=== PATIENT | male | born 1975 | race Caucasian/White ===

== ENCOUNTER → 2022-03-05 | Outpatient (CLI) | payer OTHER, SELFPAY ==
[2022-03-05 12:14] LABS: Absolute Lymphocyte Count 1.52 X10^3/uL (0.83-4.51); Absolute Neutrophil Count 3.3 X10^3/uL (2.0-7.7); Basophil# 0.07 X10^3/uL; Basophil% 1.3 % (0-1); Eosinophil# 0.17 X10^3/uL; Eosinophils% 3.1 % (0-5); Hematocrit 43.1 % (40-54); Hemoglobin 14.1 g/dL (13.0-16.5); Lymphocyte # 1.52 X10^3/ul (0.83-4.51); Lymphocyte % 27.3 % (19-41); Mean Corp Hgb Conc 32.7 g/dL (32-36); Mean Corpuscular Hgb 31.8 pg (27.0-32.0); Mean Corpuscular Volume 97.3 fL (80-94); Mean Platelet Vol. 9.6 fl (6.2-12.0); Monocyte# 0.54 X10^3/uL; Monocyte% 9.7 % (0-10); NRBC Flagged by Analyzer 0 % (0-5); Neutrophil # 3.26 X10^3/uL (2.7-7.7); Neutrophil % 58.4 % (47-70); Platelet Count 264 K/mm3 (150-450); RBC Distribution Width CV 12.4 % (11.6-14.6); RBC Distribution Width SD 44.7 fl (35.1-43.9); Red Blood Count 4.43 M/mm3 (4.6-6.2); White Blood Count 5.6 K/mm3 (4.4-11.0)
[2022-03-05 12:34] LABS: Vitamin D,25 Hydroxy 51.5 ng/mL
[2022-03-05 12:48] LABS: AST(SGOT) 23 U/L (15-37); Alanine Aminotransfer ALT/SGPT 29 U/L (16-61); Albumin, Serum 3.7 g/dL (3.2-5.0); Alkaline Phosphatase 62 U/L (45-117); Anion Gap 6 (5-15); BUN 19 mg/dL (7-18); BUN/Creat Ratio 19.5 RATIO (10-20); Calcium,Total 8.6 mg/dL (8.5-10.1); Chloride 105 mmol/L (98-107); Cholesterol 174 mg/dL (200); Creatinine, Serum 0.98 mg/dL (0.70-1.30); EST Glomerular Filtration Rate 87 mL/min (>60); Est Glom Filt Rate - Afr Amer 105 mL/min (>60); Globulin 3.7 g/dL (2.2-4.2); Glucose 87 mg/dL (74-106); High Density Lipoprotein 49 mg/dL; Potassium 4.1 mmol/L (3.5-5.1); Protein, Total 7.4 g/dL (6.4-8.2); Sodium Level 137 mmol/L (136-145); Thyroid Stim Hormone (TSH) 1.76 uIU/mL (0.358-3.74); Triglycerides 56 mg/dL; Very Low Density Lipoprotein 11 mg/dL (5-40)
== END | disposition home or self-care (01) ==
PROVIDERS: PCP Family Medicine; Referring Provider Family Medicine; Visit Provider Family Medicine
DX: Z00.00 Encounter for general adult medical examination without abnormal findings (principal); E55.9 Vitamin D deficiency, unspecified
CPT/HCPCS: 36415; 80053; 80061; 82306; 84443; 85025

== ENCOUNTER → 2024-03-12 | Outpatient (CLI) | payer OTHER, SELFPAY ==
[2024-03-12 17:48] LABS: Absolute Lymphocyte Count 1.82 X10^3/uL (0.83-4.51); Absolute Neutrophil Count 4.1 X10^3/uL (2.0-7.7); Basophil# 0.07 X10^3/uL; Eosinophil# 0.18 X10^3/uL; Eosinophils% 2.7 % (0-5); Lymphocyte # 1.82 X10^3/ul (0.83-4.51); Lymphocyte % 26.9 % (19-41); Mean Corp Hgb Conc 31.7 g/dL (32-36); Mean Corpuscular Hgb 30.8 pg (27.0-32.0); Mean Corpuscular Volume 97.2 fL (80-94); Mean Platelet Vol. 9.7 fl (6.2-12.0); Monocyte# 0.58 X10^3/uL; Monocyte% 8.6 % (0-10); NRBC Flagged by Analyzer 0 % (0-5); Neutrophil # 4.09 X10^3/uL (2.7-7.7); Neutrophil % 60.5 % (47-70); Platelet Count 296 K/mm3 (150-450); RBC Distribution Width CV 12.9 % (11.6-14.6); RBC Distribution Width SD 46.3 fl (35.1-43.9); Red Blood Count 4.22 M/mm3 (4.6-6.2); White Blood Count 6.8 K/mm3 (4.4-11.0)
[2024-03-12 18:41] LABS: ALB/GLOB Ratio 1.1 RATIO (0.9-2.4); AST(SGOT) 22 U/L (15-37); Alanine Aminotransfer ALT/SGPT 23 U/L (16-61); Albumin, Serum 3.6 g/dL (3.2-5.0); Alkaline Phosphatase 59 U/L (45-117); Anion Gap 5 (5-15); BUN 20 mg/dL (7-18); BUN/Creat Ratio 14.8 RATIO (10-20); Calcium,Total 8.7 mg/dL (8.5-10.1); Chloride 104 mmol/L (98-107); Cholesterol 155 mg/dL (200); Creatinine, Serum 1.35 mg/dL (0.70-1.30); EST Glomerular Filtration Rate 59 mL/min (>60); Est Glom Filt Rate - Afr Amer 72 mL/min (>60); Globulin 3.3 g/dL (2.2-4.2); Glucose 101 mg/dL (74-106); High Density Lipoprotein 55 mg/dL; Potassium 3.7 mmol/L (3.5-5.1); Protein, Total 6.9 g/dL (6.4-8.2); Sodium Level 136 mmol/L (136-145); Thyroid Stim Hormone (TSH) 1.43 uIU/mL (0.358-3.74); Triglycerides 67 mg/dL; Very Low Density Lipoprotein 13 mg/dL (5-40)
== END | disposition home or self-care (01) ==
LOC: MFPLAB 14:19
PROVIDERS: PCP Family Medicine; Visit Provider Family Medicine
DX: Z00.00 Encounter for general adult medical examination without abnormal findings (principal); E55.9 Vitamin D deficiency, unspecified
CPT/HCPCS: 36415; 80053; 80061; 82306; 84443; 85025

== ENCOUNTER 2024-10-07 07:25 | Day surgery (SDC) | payer OTHER, SELFPAY ==
[2024-10-07] VITALS (8 sets, daily range): BP systolic 93–149; BP diastolic 67–87; PULSE 55–72; RESP 16–18; TEMP 36.1–37.6; O2SAT 96–100; BMI 19.8
--- NOTE | 2024-10-07 07:46 | PCM.PRE.AN2 ---
ASA Classification* ASA Classification ASA Classification: 2 Assessment & Plan Anesthesia* Anesthesia Assessment Anesthesia Assessment: Discussed sedation and/or anesthesia options, risks, benefits, and alternatives with patient/parents/legal guardian/POA. Questions invited. The patient/parents/legal guardian/POA seems to understand and agrees to proceed with anesthesia plan. Reviewed the physical assessment, medical history, allergy history and patient home medications list prior to surgery/procedure/anesthetic and documented any changes. Performed airway and anesthesia risk assessments. Anesthesia Type Anesthesia Type: MAC Anesthesia Focused Assessment* Temperature: 97 F Pulse Rate: 72 Blood Pressure: 149/87 Respiratory Rate: 16 Pulse Ox: 99 Airway Assessment Mouth opens: >3 cm Mallampati Score: II Focused Labs Anesthesia Preop lab: CBC WBC 6.8 K/mm3 (4.4-11.0) 03/12/24 14:20 RBC 4.22 M/mm3 (4.6-6.2) L 03/12/24 14:20 Hgb 13.0 g/dL (13.0-16.5) 03/12/24 14:20 Hct 41.0 % (40-54) 03/12/24 14:20 Plt Count 296 K/mm3 (150-450) 03/12/24 14:20 CHEMISTRY Potassium 3.7 mmol/L (3.5-5.1) 03/12/24 14:20 Sodium 136 mmol/L (136-145) 03/12/24 14:20 BUN 20 mg/dL (7-18) H 03/12/24 14:20 Creatinine 1.35 mg/dL (0.70-1.30) H 03/12/24 14:20 Glucose 101 mg/dL (74-106) 03/12/24 14:20 TSH 1.43 uIU/mL (0.358-3.74) 03/12/24 14:20 COAG Pre-Assessment Diagnosis/Proposed Procedure Planned Operative Procedure(s): COLONOSCOPY Anesthesia History 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 When Was Last Pacemaker Check QUESTION #4 FULL TEXT: You/Your Family Experience fever (hyperthermia) with Anesthesia Last Oral Intake Last Oral intake: Last Oral Intake NPO since 03:30 10/07/24 07:36 Meds taken in AM with sips of No 10/07/24 07:36 water? 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 Female No 10/02/24 14:15 HX of Motion Sickness No 10/02/24 14:15 HX of N/V After Surgery No 10/02/24 14:15 Non-Smoker Yes 10/02/24 14:15 Duration of Surgery greater No 10/02/24 14:15 than 60 minutes Number of Risk Factors 1 10/02/24 14:15 PONV Score Low Risk 10/02/24 14:15 Height & Weight Height & Weight: Anesthesia: Height & Weight Height 5 ft 9 in 10/07/24 07:36 Weight: 61 kg 10/07/24 07:36 Body Mass Index (BMI) 19.8 10/07/24 07:36 Respiratory Assessment Respiratory Assessment - industrial waste treatment technician: Respiratory Tract Infection Hx - industrial waste treatment technician Hx Respiratory Tract Infection No 10/02/24 14:15 STOP Sleep Apnea STOP Sleep Apnea - industrial waste treatment technician: STOP Sleep Apnea - industrial waste treatment technician Hx Hypertension No 10/02/24 14:15 Hx Sleep Apnea No 10/02/24 14:15 CPAP BIPAP Do you snore loudly (louder No 10/02/24 14:15 than talking or can be heard Do you often feel tired/ No 10/02/24 14:15 fatigued/ sleepy during daytime? Has anyone observed you stop No 10/02/24 14:15 breathing during sleep? STOP Results Negative 10/02/24 14:15 QUESTION #5 FULL TEXT : Do you snore loudly (louder than talking or can be heard through closed doors)? 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 Specify any problems Hx of Preganancy in last 3 N/A 10/02/24 14:15 Months Nurse Filling Out Transfusion [facility] 10/02/24 14:15 & Questions: Date: 10/02/24 10/02/24 14:15 Time: 14:19 10/02/24 14:15 Patient unable to answer at this time (ie. 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: /Reproductive Hx- industrial waste treatment technician Hx Now Gestational Age (in weeks): EDC: Hx Hx Para Hx Section SAB PFSH Medical History Non-smoker MVP (mitral valve prolapse) Home Medications ?Medication ?Instructions ?Recorded ?Last Taken ?Type cholecalciferol (vitamin D3) 50 50 mcg PO QDAY 08/18/24 10/05/24 History mcg (2,000 unit) capsule glucosamine HCl 500 mg tablet 500 mg PO QDAY 08/18/24 10/05/24 History magnesium oxide 200 mg PO QDAY 08/18/24 10/05/24 History multivitamin 1 tab PO QAM 08/18/24 10/05/24 History omega-3 fatty acids-fish oil 360 1 cap PO QDAY 08/18/24 10/03/24 History mg-1,200 mg capsule (Fish Oil) Allergy/AdvReac Type Severity Reaction Status Date / Time Penicillins Allergy Other Verified 10/07/24 07:34 Surgical History History of hernia surgery Social History current occupational status: employed current occupation: [employer] Smoking Status: Never smoker alcohol intake: current alcohol intake frequency: a few times a month substance use type: does not use Review of Systems (Anesthesia) ROS Narrative System reviewed and no additional complaints, except as documented.
--- NOTE | 2024-10-07 08:21 | HP.PCM_ITS ---
[facility] - General General Date of Admission: 10/07/24 Date of Service: 10/07/24 Chief Complaint: Screening colonoscopy HPI Narrative MATHEW ORTEGA, is a 49 M who presents today for screening colonoscopy. He does not have any abdominal pain, cramping, chest pain or shortness of breath. He has not had a colonoscopy in the past. Overall is in very good health. [facility] Medical History Non-smoker MVP (mitral valve prolapse) Home Medications ?Medication ?Instructions ?Recorded ?Last Taken ?Type cholecalciferol (vitamin D3) 50 50 mcg PO QDAY 08/18/24 10/05/24 History mcg (2,000 unit) capsule glucosamine HCl 500 mg tablet 500 mg PO QDAY 08/18/24 10/05/24 History magnesium oxide 200 mg PO QDAY 08/18/24 10/05/24 History multivitamin 1 tab PO QAM 08/18/24 10/05/24 History omega-3 fatty acids-fish oil 360 1 cap PO QDAY 08/18/24 10/03/24 History mg-1,200 mg capsule (Fish Oil) Allergy/AdvReac Type Severity Reaction Status Date / Time Penicillins Allergy Other Verified 10/07/24 07:34 Surgical History History of hernia surgery Social History current occupational status: employed current occupation: [employer] Smoking Status: Never smoker alcohol intake: current alcohol intake frequency: a few times a month substance use type: does not use ROS Review of Systems ROS Unobtainable: other Constitutional Constitutional: Denies fatigue, fever(s), poor appetite, weight gain or weight loss ENT HEENT: Denies mouth lesions Cardiovascular Cardiovascular: Denies abdominal bloating, abdominal edema or abdominal pain Respiratory/Chest Respiratory/Chest: Denies change in mental status, change in phlegm color, chest congestion or chest tightness Gastrointestinal Gastrointestinal: Denies belching, bloating, change in bowel habits, change in stool character, chewing difficulty, coffee ground emesis, constipation, cramping, diarrhea, dyspepsia, dysphagia, early satiety, excessive flatus, fecal incontinence, heartburn, hematemesis, hematochezia, hemorrhoids, loose stools, melena, nausea, odynophagia, rectal bleeding, tenesmus, vomiting or weight changes Genitourinary Genitourinary: Denies abdominal discomfort, burning urination or itching Musculoskeletal Musculoskeletal: Reports as per HPI; Denies muscle weakness or myalgias Integumentary Integumentary: Denies jaundice Neurologic Neurologic: Denies lack of coordination or weakness Psychiatric Psychiatric: Denies confusion, depression, memory loss, mood swings, paranoia or suicidal ideation Endocrine Endocrinology: Denies systems reviewed and no addt'l complaints, except as documented Hematologic/Lymphatic Hematologic/Lymphatic: Denies anemia, easy bleeding, easy bruising or lymphadenopathy Allergic/Immunologic Allergic/Immunologic: Denies systems reviewed and no addt'l complaints, except as documented Vital Signs Vital Signs Vital Signs: 10/07/24 07:36 10/07/24 07:36 10/07/24 07:46 Temperature 97 F L 97 F L Temperature Source Temporal Pulse Rate 72 72 Respiratory Rate 16 16 Respiratory Pattern Normal Blood Pressure 149/87 H 149/87 H Blood Pressure Mean 107 Blood Pressure Source Monitor Blood Pressure Position Sitting Blood Pressure Location Left Arm Pulse Ox 99 99 Weight Weight: 134 lb 7.712 oz Body Mass Index (BMI) 19.8 Physical Exam Const alert General Appearance: cooperative Orientation / Consciousness: oriented to person HEENT hearing grossly normal bilaterally Head and Scalp: normal to inspection Face and Sinus: face symmetric Nose: external nose normal Mouth: oral and palatal mucosa normal Eyes conjunctivae normal General Eye: normal appearance of both eyes Neck full ROM General: normal visual inspection Lymph Lymphatic: no lymphadenopathy noted Chest inspection of chest normal and palpation of chest normal Chest: symmetrical chest wall rise Resp normal respiratory effort Effort and Inspection: able to speak in complete sentences Cardio regular rate GI non-distended Percussion: normal to percussion Rectal Exam: deferred Neuro Speech: speech normal Gait (Neuro): normal gait Assessment & Plan Assessment/Plan (1) Encounter for screening for malignant neoplasm of colon: PLAN: 49-year-old gentleman arrives for scan colonoscopy. He was explained alternatives, risk, benefits include not withstanding bleeding, infection, s epsis, perforation, need emergent urgent . He will have an ASA of 3.
--- NOTE | 2024-10-07 09:20 | OP.COLON_ITS ---
Patient Name: Tito Velez Procedure Date: 10/07/2024 8:54 AM Date of : 1975 Age: 49 Procedure: Colonoscopy Indications: Screening for colorectal malignant neoplasm Providers: Carson Gregory DO Medicines: Monitored Anesthesia Care Patient Profile: This is a 49 year old male. Refer to note in patient chart for documentation of history and physical. Last Colonoscopy: none. The patient's first colonoscopy is today. Complications: No immediate complications. Procedure: Pre-Anesthesia Assessment: - Prior to the procedure, a History and Physical was performed, and patient medications and allergies were reviewed. The patient is competent. The risks and benefits of the procedure and the sedation options and risks were discussed with the patient. All questions were answered and informed consent was obtained. Patient identification and proposed procedure were verified by the physician in the pre-procedure area. Mental Status Examination: alert and oriented. Airway Examination: normal oropharyngeal airway and neck mobility. Respiratory Examination: clear to auscultation. CV Examination: normal. Prophylactic Antibiotics: The patient does not require prophylactic antibiotics. Prior Anticoagulants: The patient has taken no anticoagulant or antiplatelet agents except for NSAID medication. ASA Grade Assessment: II - A patient with mild systemic disease. After reviewing the risks and benefits, the patient was deemed in satisfactory condition to undergo the procedure. The anesthesia plan was to use monitored anesthesia care (MAC). Immediately prior to administration of medications, the patient was re-assessed for adequacy to receive sedatives. The heart rate, respiratory rate, oxygen saturations, blood pressure, adequacy of pulmonary ventilation, and response to care were monitored throughout the procedure. The physical status of the patient was re-assessed after the procedure. After I obtained informed consent, the scope was passed under direct vision. Throughout the procedure, the patient's blood pressure, pulse, and oxygen saturations were monitored continuously. The Colonoscope was introduced through the anus and advanced to the cecum, identified by appendiceal orifice and ileocecal valve. The colonoscopy was performed without difficulty. The patient tolerated the procedure well. The quality of the bowel preparation was adequate. The ileocecal valve, appendiceal orifice, and rectum were photographed. Scope In: 9:02:41 AM Scope Withdrawal Time 0 hours 9 minutes 28 seconds Scope Out: 9:15:20 AM Total Procedure Duration Time 0 hours 12 minutes 39 seconds Findings: The perianal and digital rectal examinations were normal. A few small-mouthed diverticula were found in the recto-sigmoid colon, sigmoid colon and transverse colon. The entire examined colon appeared normal on direct and retroflexion views. The exam was otherwise without abnormality on direct and retroflexion views. Impression: - Diverticulosis in the recto-sigmoid colon, in the sigmoid colon and in the transverse colon. - The entire examined colon is normal on direct and retroflexion views. - The examination was otherwise normal on direct and retroflexion views. - No specimens collected. Recommendation: - Discharge patient to home. - Resume previous diet. - Continue present medications. - Repeat colonoscopy in 10 years for screening purposes. Procedure Code(s): --- Professional --- G0121, Colorectal cancer screening; colonoscopy on individual not meeting criteria for high risk CPT copyright 2021 [employer]. All rights reserved. The codes documented in this report are preliminary and upon label coder review may be revised to meet current compliance requirements. Carson Gregory DO 10/07/2024 9:20:25 AM This report has been signed electronically. Number of Addenda: 0 Note Initiated On: 10/07/2024 8:54 AM
--- NOTE | 2024-10-07 09:21 | OP.CCLET_ITS ---
10/07/2024 Luis Eduardo Allan [address] [place] [address] Re : Colonoscopy procedure for Tito Velez Dear Dr. Allan This procedure was performed on Monday, October 07, 2024. My impressions and recommendations are as follows: Impressions : - Diverticulosis in the recto-sigmoid colon, in the sigmoid colon and in the transverse colon. - The entire examined colon is normal on direct and retroflexion views. - The examination was otherwise normal on direct and retroflexion views. - No specimens collected. Recommendations : - Discharge patient to home. - Resume previous diet. - Continue present medications. - Repeat colonoscopy in 10 years for screening purposes. My findings are described in the full procedure note, which is enclosed. If I can be of further assistance, please feel free to contact me at . Sincerely, Carson Friend, DO 10/07/2024 9:20:25 AM This report has been signed electronically.
--- NOTE | 2024-10-07 09:23 | PCM.POST.ANE ---
Anesthesia: Postop Eval I Current Vital Signs Temperature: 97.4 F Pulse Rate: 67 Blood Pressure: 97/71 Respiratory Rate: 16 Pulse Ox: 99 Oxygen Delivery Method: Room Air Assessment Airway patent: Yes Spontaneous unlabored respirations: Yes Mental status: Asleep nausea: No Vomiting: No Anesthesia Complication: No Fluid Hydration Crystalloid volume administer (ml): 40 Total IV fluid infused: 40 Progress Note Anesthesia document: Postop Eval 1 completed: Yes
--- NOTE | 2024-10-07 09:57 | PCM.POSTANE2 ---
Anesthesia Postop Eval I Sum Postop Eval Completion status Anesthesia document: Postop Eval 1 completed: Yes Anesthesia Postop Eval I Summary Anesthesia Postop Eval I Summary: Anesthesia Postop Eval I: Assessment Summary Airway patent Yes 10/07/24 09:24 [email or web address] Spontaneous unlabored Yes 10/07/24 09:24 [email or web address] respirations Mental status Asleep 10/07/24 09:24 [email or web address] nausea No 10/07/24 09:24 [email or web address] Vomiting No 10/07/24 09:24 [email or web address] Anesthesia Postop Eval I: Fluid Summary Crystalloid volume administer 40 10/07/24 09:24 [email or web address] (ml) Colloids volume administered ( ml) Blood Product volume administered (ml) Total IV fluid infused 40 10/07/24 09:24 [email or web address] Anesthesia Postop Eval I: Summary Notes Anesthesia Complication No 10/07/24 09:24 [email or web address] Anesthesia Complication Comment: Post-operative progress note Anesthesia: Postop Eval II Evaluation Mental status: Awake Pain Level: 0 nausea: No Vomiting: No
== END 2024-10-07 10:02 | disposition home or self-care (01) ==
LOC: EN 07:26 → AC 07:27
PROVIDERS: PCP Family Medicine; Referring Provider Family Medicine; Visit Provider Internal Medicine Gastroenterology
PROC: 0DJD8ZZ Inspection of Lower Intestinal Tract, Via Natural or Artificial Opening Endoscopic (ICD-10-PCS; CPT 45378; principal; 2024-10-07 08:25)
DX: Z12.11 Encounter for screening for malignant neoplasm of colon (principal); K57.30 Diverticulosis of large intestine without perforation or abscess without bleeding
CPT/HCPCS: G0121; J2405